=== PATIENT | female | born 1975 | race Caucasian/White ===

== ENCOUNTER → 2021-05-11 | Outpatient (CLI) | payer OTHER ==
[~2021-05-11] MED LIST: HYDR-2761 PO
[2021-05-11 13:13] LABS: BASO # 0.1 x10^3/uL (0.0-0.2); BASO % 1 % (0-3); EOS # 0.1 x10^3/uL (0.0-0.7); EOS % 1 % (0-3); HEMATOCRIT 33.2 % (36.0-47.0); HEMOGLOBIN 10.7 g/dL (12.0-15.5); LYMPH # 1.9 x10^3/uL (1.0-4.8); LYMPH % 25 % (24-48); MEAN CORPUSCULAR HEMOGLOBIN 25 pg (25-35); MEAN CORPUSCULAR HGB CONC 32 g/dL (31-37); MEAN CORPUSCULAR VOLUME 77 fL (79-100); MONO # 0.5 x10^3/uL (0.0-1.1); MONO % 7 % (0-9); NEUT # 5.2 x10^3/uL (1.8-7.7); NEUT % 67 % (31-73); PLATELET COUNT 268 x10^3/uL (140-400); RED BLOOD COUNT 4.31 x10^6/uL (3.50-5.40); RED CELL DISTRIBUTION WIDTH 19.4 % (11.5-14.5); WHITE BLOOD COUNT 7.7 x10^3/uL (4.0-11.0)
== END ==
LOC: SURGPAT 12:46
PROVIDERS: ATTEND Obstetrics & Gynecology
DX: Z01.818 Encounter for other preprocedural examination (principal); N92.0 Excessive and frequent menstruation with regular cycle; D64.9 Anemia, unspecified
CPT/HCPCS: 36415; 85025

== ENCOUNTER → 2021-05-16 | Outpatient (CLI) | payer OTHER | LOC: LAB 09:08 | PROVIDERS: ATTEND Obstetrics & Gynecology | DX: Z01.812 Encounter for preprocedural laboratory examination (principal); N92.0 Excessive and frequent menstruation with regular cycle; D64.9 Anemia, unspecified; Z20.822 Contact with and (suspected) exposure to COVID-19 | CPT/HCPCS: U0003; U0005 ==

== ENCOUNTER 2021-05-17 07:16 | Day surgery (SDC) | payer OTHER ==
[2021-05-11 13:10] VITALS: BP 116/67
[~2021-05-17] VITALS: Ht 165.1 cm; Wt 64.0 kg
[~2021-05-17 07:16] MED LIST changes: -HYDR-2761 PO; +HYDROmorphone 2 MG/ML VIAL IVP PRN; +IV RINGERS,LACTATED 1000ML 1,000 ML IV SCH; +MORPHINE SULFATE 2 MG/ML INJ. IVP PRN; +PROCHLORPERAZINE 10 MG/2 ML VIAL. IVP PRN; +fentaNYL PF VIAL 100 MCG/2 ML VIAL IVP PRN
[2021-05-17] MEDS ORDERED: SILVER NITRATE STICK TP ONE ×3 (07:25→09:32)
[2021-05-17] MEDS ORDERED: VASOPRESSIN 20 UNIT/ML VIAL. ONE ×2 (07:25→07:29)
[2021-05-17] MEDS ORDERED: OXYTOCIN 10 UNIT/ML VIAL. ONE ×2 (07:25→07:26)
[2021-05-17] MEDS ORDERED: METHYLERGONOVINE MALEATE 0.2 MG/ML VIAL. IM ONE (07:26)
[2021-05-17] MEDS ORDERED: PROPOFOL 10 MG/ML (20ML) VIAL. IV ONE (07:38)
[2021-05-17] MEDS ORDERED: ONDANSETRON PF 4 MG/2 ML VIAL. ONE (07:38)
[2021-05-17] MEDS ORDERED: LIDOCAINE 2% PF 5 ML VIAL. ONE (07:38)
[2021-05-17] MEDS ORDERED: SEVOFLURANE 31 TO 60 MINUTES. IH ONE (07:38)
[2021-05-17] MEDS ORDERED: KETOROLAC 30 MG/ML VIAL. ONE (07:38)
[2021-05-17] MEDS ORDERED: DEXAMETHASONE SOD PHOS 4 MG/ML VIAL ONE (07:39)
[2021-05-17] MEDS ORDERED: MIDAZOLAM HCL/PF 2 MG/2 ML VIAL. ONE (07:41)
[2021-05-17] MEDS ORDERED: fentaNYL PF VIAL 100 MCG/2 ML VIAL ONE (07:41)
[2021-05-17] MEDS ORDERED: NITROGLYCERIN SUBLINGUAL 0.4 MG BOTTLE OF 25. SL ONE (09:27)
--- NOTE | 2021-05-17 09:42 | PDOC ---
BRIEF OPERATIVE NOTE Date: May 17, 2021 Pre-Op Diagnosis menorrhagia, anemia, uterine fibroids Post-Op Diagnosis same Procedure Performed h/s D&C with myopatricia novasure endometrial ablation Surgeon Dr. Barbie Alston Anesthesiologist Dr. Hodges Anesthesia Type: General Blood Loss 5cc IV Fluid see anesthesia Urine Output straight cath prior Specimens Obtained endometrial currettings Findings 9cm uterus, some tissue post, possible fibroid fundally and anterior bilateral tubal openings seen L 6.5 W 4.5 ablation time 99 seconds myosure fluid deficit 250cc cut time 1min 47 sec with myosure reach Complications none Operative Note [id number] BARBIE ALSTON MD May 17, 2021 09:42
[2021-05-17] MEDS ORDERED: NALOXONE 0.4 MG/ML VIAL. IV PRN (09:45)
[2021-05-17] MEDS ORDERED: HYDROcodone/APAP 5/325MG 1 TAB TABLET PO PRN (09:45)
[2021-05-17] MEDS ORDERED: MAG HYDROX/ALUMINUM HYD/SIMETH 30 ML ORAL.SUSP PO PRN (09:45)
[2021-05-17] MEDS ORDERED: SIMETHICONE 80 MG TAB.CHEW PO PRN (09:45)
[2021-05-17] MEDS ORDERED: diphenhydrAMINE HCL 25 MG CAPSULE PO PRN (09:45)
[2021-05-17] MEDS ORDERED: diphenhydrAMINE 50 MG/ML VIAL IV PRN (09:45)
[2021-05-17] MEDS ORDERED: CALCIUM CARBONATE 500 MG TAB.CHEW PO PRN (09:45)
[2021-05-17] MEDS ORDERED: 0.9 % SODIUM CHLORIDE 10 ML DISP.SYRIN. IV PRN (09:45)
[2021-05-17] MEDS ORDERED: HYDR-2761 PO (09:54)
[2021-05-17] MEDS ORDERED: HYDROcodone/APAP 5/325MG 1 TAB TABLET PO ONE (10:00)
--- NOTE | 2021-05-17 10:00 | OP ---
DATE OF SURGERY: 05/17/2021 PREOPERATIVE DIAGNOSES: Menorrhagia to anemia and uterine fibroids. POSTOPERATIVE DIAGNOSES: Menorrhagia to anemia and uterine fibroids. PROCEDURE PERFORMED: Hysteroscopy, D and C with MyoSure fluid collection system and NovaSure endometrial ablation. SURGEON: Barbie Jasso MD ANESTHESIOLOGIST: Migue Foreman MD ANESTHESIA: General. BLOOD LOSS: 5 mL. URINE OUTPUT: Straight cath prior to procedure. IV FLUIDS: Please see anesthesia records. SPECIMENS: Endometrial curettings. FINDINGS: She had a 9 cm uterus. On hysteroscope, she had some tissue posteriorly. Both tubal ostia were clearly seen. Possible fibroid versus thicker tissue anteriorly towards the fundus. On the MyoSure, the fluid deficit settled at 250 mL. The cut time was 1 minute and 47 seconds with the MyoSure Reach and then with the NovaSure, the length was set at 6.5 for the functional length. The width settled at 4.5. The device was of course enabled, passed the cavity assessment check and had an ablation time of 99 seconds. COMPLICATIONS: None. DESCRIPTION OF PROCEDURE: This patient was taken to the operating room where general anesthesia was placed. The patient was placed in dorsal lithotomy position in [facility]. Vagina was prepped and draped in the normal sterile fashion and a straight cath urine was done prior to my arrival. Upon my arrival, a timeout was performed. Once everyone agreed on the patient, the site and the procedure, the procedure was initiated. A weighted speculum was placed in the patient's vagina. A single-tooth tenaculum was used to grasp the anterior lip of the cervix. The Anibal dilators were used to dilate up to a 15, 16 and she was sounded to 9 cm. The MyoSure scope had already been primed and was ready and was placed in with the above findings. The MyoSure Reach was obtained and a curetting was done under direct visualization with excellent results. It lasted 1 minute and 47 seconds when it was removed. The NovaSure was taken again. Initially, it was set at 6, but it opened up immediately, so I set it to 6.5 and it still opened up very well for a better fit, so the length was set at 6.5, the width settled at 4.5. The device was enabled. The K-Y jelly was put around the cuff of the same to make a seal around the cervix. Once it was enabled, the cavity assessment check was performed and it was straightened to the ablation lasting 99 seconds. The device was removed. The tenaculum was removed. There was some slight bleeding from the tenaculum sites, which silver nitrate and pressure were used with excellent results. All counts were correct x 2 by OR personnel. The patient was awakened from anesthesia and brought to recovery room in stable condition. MILEY DR: Kavitha TID: [id number]
[2021-05-17 10:08] VITALS: BP 108/64
== END 2021-05-17 10:34 | disposition home or self-care (01) ==
LOC: SURG 07:16 → EDUNIT# 08:30 → SURG 10:34
PROVIDERS: ATTEND Obstetrics & Gynecology
DX: N92.0 Excessive and frequent menstruation with regular cycle (principal); D25.9 Leiomyoma of uterus, unspecified; D64.89 Other specified anemias; D64.9 Anemia, unspecified; Z87.440 Personal history of urinary (tract) infections; Z79.899 Other long term (current) drug therapy; Z98.890 Other specified postprocedural states; Z87.891 Personal history of nicotine dependence; Z91.040 Latex allergy status; Z88.5 Allergy status to narcotic agent; Z72.89 Other problems related to lifestyle
CPT/HCPCS: 58563; 81025; 88305; A4930; J1100; J1885; J2250; J2405; J2704; J3010; J2210; J2590; J3490